=== PATIENT | female | born 1950 | race Caucasian/White ===

== ENCOUNTER 2019-09-12 07:07 | Day surgery (SDC) | payer MEDICARE, OTHER ==
[2019-09-11 11:01] VITALS: BMI 26.6
[~2019-09-12 07:07] MED LIST: Fentanyl 100 MCG/2 ML VIAL ONE; Fluorouracil 100 MG, Enoxaparin Sodium 25 MG, EPINEPHrine 0.3 MG in Ophthalmic Irrigati... IRR SCH; Midazolam HCl 2 mg/2 ml Vial ONE
[2019-09-12] MEDS ORDERED: Phenylephrine 2.5% Ophth Soln 5 ML BOT ONE (07:40)
[2019-09-12] MEDS ORDERED: Cyclopentolate 1% Opth Drop 2 ML BOT ONE (07:40)
--- NOTE | 2019-09-12 10:16 | OP ---
DATE OF PROCEDURE: 09/12/2019 PREOPERATIVE DIAGNOSIS: Macular hole, left eye. POSTOPERATIVE DIAGNOSIS: Macular hole, left eye. PROCEDURE PERFORMED: Pars plana vitrectomy and internal limiting membrane peel, left eye. ANESTHESIA: Local with monitored anesthesia care. PROCEDURE IN DETAIL: The patient was identified in the preoperative holding area. Appropriate informed consent for the planned surgical procedure on the left eye had been obtained. The patient was transported to the operative suite, where appropriate cardiopulmonary monitoring was established. Local anesthesia was obtained using retrobulbar modified Van Lint lid block using 50:50 mixture of 4% lidocaine and 0.75% bupivacaine. The patient was prepped and draped in the usual sterile manner for ophthalmic surgery in the left eye. Lid speculum was placed in the left eye. A 25-gauge trocar was placed in the conjunctiva and sclera supratemporally, inferotemporally, and supranasally. Infusion line was placed inferotemporally. Light pipe and vitreous cutter were inserted into the eye. Core vitrectomy was performed. Posterior hyaloid face was elevated using vacuum suction and peeled across the macula and into the periphery. Indocyanine green dye was infused on the posterior pole x1, identifying the internal limiting membrane. This was elevated along the supratemporal arcade using membrane scraper and peeled across the macula in one piece. Complete air-fluid exchange was performed with 10 minutes being allowed for fluid to drain posteriorly. Indirect ophthalmoscopy was used to examine the retina 360 degrees. No holes, breaks, or tears were identified. 28% sulfur hexafluoride gas was infused into the eye. Trocars were removed. The eye was noted to retain pressure well. Retrobulbar Kenalog and subconjunctival Ancef were placed. Antibiotic ointment was placed. Eye was patched and shielded. The patient was taken to postoperative recovery unit in good condition, having suffered no immediate perioperative complications. The patient was instructed to keep patch and shield on, avoid flat and back positioning, followup appointment with Dr. Shrestha. Job ID: [id number]
[2019-09-12] MEDS ORDERED: PROPOFOL 200 MG/20 ML VIAL ONE (10:42)
[2019-09-12] MEDS ORDERED: Maxitrol 0.1% Opth Oint 3.5 GM TUBE ONE (10:42)
[2019-09-12] MEDS ORDERED: CEFAZOLIN 1 GM VIAL ONE (10:42)
[2019-09-12] MEDS ORDERED: Bupivacaine PF 0.75% SDV 10 ML ONE (10:42)
[2019-09-12] MEDS ORDERED: Lidocaine 1% PF 5 ML VIAL ONE (10:42)
[2019-09-12] MEDS ORDERED: Indocyanine Green 25 MG/10 ML VIAL ONE (10:42)
[2019-09-12] MEDS ORDERED: Triamcinolone 40 MG/ML VIAL ONE (10:42)
[2019-09-12] MEDS ORDERED: Lidocaine 4% PF 5 ML AMP ONE (10:42)
[2019-09-12] MEDS ORDERED: Enoxaparin Sodium 30 MG/0.3 ML SYRINGE ONE (10:42)
== END 2019-09-12 10:40 | disposition home or self-care (01) ==
LOC: SDC 07:07
PROVIDERS: ATTEND Ophthalmology Retina Specialist
PROC: 08T53ZZ Resection of Left Vitreous, Percutaneous Approach (ICD-10-PCS; principal; 2019-09-12)
PROC: 08NF3ZZ Release Left Retina, Percutaneous Approach (ICD-10-PCS; 2019-09-12)
DX: H35.342 Macular cyst, hole, or pseudohole, left eye (principal); I10 Essential (primary) hypertension; Z79.899 Other long term (current) drug therapy; Z88.0 Allergy status to penicillin; Z88.5 Allergy status to narcotic agent; Z88.8 Allergy status to other drugs, medicaments and biological substances; Z90.5 Acquired absence of kidney
CPT/HCPCS: 67025; J0171; J0690; J1650; J2001; J2250; J2704; J3010; J3301; J3490; J9190